=== PATIENT | female | born 1965 | race Caucasian/White ===

== ENCOUNTER 2017-01-28 20:26 | Emergency (ER) | payer OTHER ==
--- NOTE | ~2017-01-28 | ER ---
PATIENT'S NAME: KISHAN HENDERSON [facility] AGE: 51 Y [address] ROOM: [place] [address] LOCATION: [facility] ADMIT DATE: 01/28/2017 ER/Outpatient Report DISCHARGE DATE: 01/28/2017 FAMILY PHYSICIAN: Physician, Unknown ATTENDING PHYSICIAN: Daniela Bear Admission date and time are documented on the medical record. I saw the patient at 2045 hours. CHIEF COMPLAINT: Rash, dorsal aspect of hands bilaterally. HISTORY OF PRESENT ILLNESS: This patient is a 51-year-old female who has about a 24-hour history of rash on the dorsal aspect of both hands. It started out with a kind of a red dots and spread over the whole dorsum of each hand and up into the wrist. It hidalgo and it itches. No severe pain. No loss of function. No numbness or tingling. No other rash on her body. She is not known to have any allergies except for sulfa. Not had any similar rash before. She has had a rash on her feet that she has used steroid cream with success. She has applied some steroid cream to the hands today. No lightheadedness, dizziness, syncope, or near syncope. No recent colds, coughs, flus, fever, chills, or sweats. No headache, eyes, ears, nose, throat, neck, or spine pain. No chest pain or shortness of breath. No abdominal pain, nausea, vomiting, or diarrhea. No urinary complaints. No joint or muscle swelling, redness, or pain just the discomfort in her hands with the itching, swelling, and rash. No neuro changes or psych issues. Does have a history of insulin-dependent diabetes mellitus. HOME MEDICATIONS: See attached medication list. ALLERGIES: SULFA. SOCIAL HISTORY: Nonsmoker, nondrinker. SIGNIFICANT PAST MEDICAL HISTORY: Insulin-dependent diabetes mellitus, hypertension, dyslipidemia, and colon cancer. OPERATIONS: Cholecystectomy, appendectomy, and bowel resection. PATIENT'S NAME: KISHAN HENDERSON [facility] AGE: 51 Y [address] ROOM: [place] [address] LOCATION: [facility] ADMIT DATE: 01/28/2017 ER/Outpatient Report DISCHARGE DATE: 01/28/2017 FAMILY PHYSICIAN: Physician, Unknown ATTENDING PHYSICIAN: Daniela Bear REVIEW OF SYSTEMS: All systems reviewed by me are negative with the exception of those discussed in the history of present illness. PHYSICAL EXAMINATION: VITAL SIGNS: Temperature 98, tympanic, pulse 82, respirations 16, blood pressure 150/77, and O2 sat on room air is 97%. EXTREMITIES: On examination of the hand, the patient has erythematous lesions on the dorsal aspect of both hands. There is no scaling. Minimal swelling. The rash are not raised like urticarial type, but does look irritative and similar to some type of allergic dermatitis. No other rashes on the body. HEENT: Negative. LUNGS: Clear. HEART: Regular. ABDOMEN: Soft, nontender. Good bowel tones. EXTREMITIES: No peripheral edema or cyanosis. NEUROVASCULAR: Intact. SKIN: As stated above. IMPRESSION: Allergic dermatitis, dorsal aspect of hands bilaterally. PLAN: The patient was dismissed home. Observation. Activity as tolerated. Zyrtec 10 mg once a day #10. Medrol Dosepak take as directed. Continue using steroid cream with occlusive dressing using Saran wrap and Jamir wraps. Follow up with personal physician in 7-10 days if no improvement. Discussed ensued with the patient concerning my findings and recommendations, she understands. DANIELA BEAR MD SDS/modl /[id number] d: 01/29/17 0057 t: 01/29/17 1825, OUTPATIENT REPORT
== END 2017-01-28 22:38 | disposition disaster alternative care site (69) ==
LOC: GMED 20:26
DX: L23.9 Allergic contact dermatitis, unspecified cause (principal); E11.9 Type 2 diabetes mellitus without complications; I10 Essential (primary) hypertension; E78.5 Hyperlipidemia, unspecified; Z88.2 Allergy status to sulfonamides; Z90.49 Acquired absence of other specified parts of digestive tract